=== PATIENT | male | born 1955 | race Caucasian/White ===

== ENCOUNTER 2023-04-08 16:11 | Emergency (ER) | payer OTHER, MEDICARE ==
[~2023-04-08] VITALS: Ht 172.7 cm; Wt 64.9 kg
[~2023-04-08 16:11] MED LIST: ASPIR 8181 MG PO; ATORVASTATIN CA20 MG PO; CITALOPRAM HBR20 MG PO; EFFIENT5 MG PO; METOPROLOL TART25 MG PO; NITROGLYCERIN0.4 MG SL; NORCO 10-325 T1 EACH PO; PANTOPRAZOLE SO40 MG PO
[2023-04-08 16:22] VITALS: O2SAT 97
[2023-04-08] MEDS ORDERED: LIDOCAINE HCL 1% LOCAL INJ 20 ML VIAL INJ ONE (17:00)
[2023-04-08] MEDS ORDERED: HYDROCODONE/APAP 5MG-325MG TAB PO ONE (17:00)
[2023-04-08] MEDS ORDERED: TETANUS/DIPHTHERIA TOX ADULT 0.5 ML SYR IM ONE (17:00)
[2023-04-08] MEDS ORDERED: BACITRACIN ZINC 0.9GM TP ONE (17:00)
[2023-04-08] MEDS ORDERED: CEPHALEXIN500 MG PO (18:20)
== END 2023-04-08 18:37 | disposition home or self-care (01) ==
LOC: ER 16:19
DX: S81.812A Laceration without foreign body, left lower leg, initial encounter (principal); W25.XXXA Contact with sharp glass, initial encounter; Y92.89 Other specified places as the place of occurrence of the external cause; I10 Essential (primary) hypertension; E78.5 Hyperlipidemia, unspecified; J44.9 Chronic obstructive pulmonary disease, unspecified; E03.9 Hypothyroidism, unspecified; I50.9 Heart failure, unspecified; I48.91 Unspecified atrial fibrillation; K21.9 Gastro-esophageal reflux disease without esophagitis; F41.9 Anxiety disorder, unspecified; I25.2 Old myocardial infarction; Z95.5 Presence of coronary angioplasty implant and graft; Z86.73 Personal history of transient ischemic attack (TIA), and cerebral infarction without residual deficits
CPT/HCPCS: 12004; 73590; 90471; 90714; 99283; J2001